=== PATIENT | female | born 1970 | race Hispanic/Latino ===

== ENCOUNTER 2016-08-30 07:31 | Emergency (ER) | payer SELFPAY ==
[2016-08-30 08:07] LABS: Basophils % (Auto) 0.5 % (0.0-1.8); Eosinophils % (Auto) 1.4 % (0.0-4.3); Hematocrit 38.8 % (30.3-42.9); Hemoglobin 12.9 gm/dl (10.1-14.3); Mean Corpuscular HGB Conc 33 % (30-34); Mean Corpuscular Hemoglobin 31 pg (28-32); Mean Corpuscular Volume 91 fl (79-97); Platelet Count 273 K/mm3 (140-440); Red Blood Count 4.24 M/mm3 (3.65-5.03); Red Cell Distribution Width 13.2 % (13.2-15.2); White Blood Count 8.3 K/mm3 (4.5-11.0)
[2016-08-30 09:38] LABS: Alanine Aminotransferase 16 units/L (7-56); Albumin 3.7 g/dL (3.9-5); Albumin/Globulin Ratio 1.1 %; Alkaline Phosphatase 60 units/L (35-129); Anion Gap 16 mmol/L; BUN/Creatinine Ratio 21.66; Bilirubin,Total < 0.2 mg/dL (0.1-1.2); Blood Urea Nitrogen 13 mg/dL (7-17); Carbon Dioxide 28 mmol/L (22-30); Chloride 101.7 mmol/L (98-107); Glucose 122 mg/dL (65-100); Lipase 18 units/L (13-60); Potassium 4.3 mmol/L (3.6-5.0); Sodium 141 mmol/L (137-145); Total Protein 7.2 g/dL (6.3-8.2)
[2016-08-30 17:24] LABS: Bilirubin,Urine NEG (Negative); Blood,Urine NEG (Negative); Ketones,Urine NEG (Negative); Leukocyte Esterase,Urine NEG (Negative); Mucus,Urine FEW /HPF; Nitrite,Urine NEG (Negative); Protein,Urine <15 mg/dL mg/dL (Negative); Urobilinogen,Urine < 2.0 mg/dL (<2.0); WBC,Urine < 1.0 /HPF (0.0-6.0)
[2016-08-30] MEDS ORDERED: NACL ONE (20:35)
--- NOTE | 2016-08-30 20:46 | Emergency Department Report ---
HPI - General Chief Complaint: Chest Pain Time Seen by Provider: 08/30/16 20:07 - HPI HPI: This is a 45-year-old female who presents to the emergency department from home, driven in by a friend, with complaint of abdominal pain that began this morning. It is more of a acute on chronic issue but the exacerbation began this morning. Patient has a history of ventral or umbilical hernia repair in August and March 2016 done in [place]. The first time the surgery was done the patient had a complication of the mesh popping out. It was repaired again but the patient was told that the mesh may once again popped out. The pain was very intense and it caused the patient feels that she was going to pass out and have some chest discomfort. That is since resolved without any intervention. This is also associated with some nausea without vomiting. She denies any fever, dysuria, vaginal bleeding, rectal bleeding but does say that she has some trouble having a bowel movement. She took some ibuprofen earlier today for her symptoms at that any relief. She does not currently have a primary care doctor here. ED Past Medical Hx - Surgical History Additional Surgical History: HYSTERECTOMY / HERNIA REPAIRS - Social History Smoking Status: Never Smoker Substance Use Type: None - Medications Home Medications: Home Medications Medication Instructions Recorded Confirmed Last Taken Type HYDROcodone/APAP 5-325 [[place] 1 each PO Q6HR PRN #14 tablet 08/30/16 Unknown Rx 5/325] Omeprazole Magnesium [PriLOSEC Otc] 20 mg PO QDAY #20 tablet. 08/30/16 Unknown Rx ED Review of Systems ROS: Stated complaint: SEVERE ABD PAIN /CHEST PAIN Other details as noted in HPI Comment: All other systems reviewed and negative Constitutional: denies: chills, fever Eyes: denies: eye pain, eye discharge, vision change ENT: denies: ear pain, throat pain Respiratory: denies: cough, wheezing Cardiovascular: chest pain. denies: palpitations Gastrointestinal: abdominal pain, nausea. denies: vomiting Genitourinary: denies: urgency, dysuria, discharge Musculoskeletal: denies: back pain, joint swelling, arthralgia Skin: denies: rash, lesions Neurological: denies: headache, weakness, paresthesias Physical Exam - Physical Exam Vital Signs: Vital Signs 08/30/16 08/30/16 08/30/16 07:35 16:47 17:00 Temperature 97.7 F 97.8 F Pulse Rate 81 78 82 Respiratory 20 20 14 Rate Blood Pressure 128/89 152/80 Blood Pressure 157/92 [Right] O2 Sat by Pulse 95 98 97 Oximetry 08/30/16 08/30/16 18:00 19:00 Temperature Pulse Rate 85 85 Respiratory 20 12 Rate Blood Pressure 151/88 155/82 Blood Pressure [Right] O2 Sat by Pulse 99 99 Oximetry Physical Exam: GENERAL: The patient is well-developed well-nourished. HEENT: Normocephalic. Atraumatic. Extraocular motions are intact. Patient has moist mucous membranes. Pupils equal reactive to light bilaterally. NECK: Supple. Trachea is midline. CHEST/LUNGS: Clear to auscultation. There is no respiratory distress noted. HEART/CARDIOVASCULAR: Regular. There is no tachycardia. There is no gallop rub or murmur. ABDOMEN: Abdomen is soft. Patient has some reproducible tenderness to palpation to the periumbilical region and just superior to the umbilicus. No guarding or rebound tenderness. No peritoneal signs. Morbidly obese habitus. Patient has normal bowel sounds. There is no abdominal distention. SKIN: There is no rash. There is no diaphoresis. NEURO: The patient is awake, alert, and oriented. The patient is cooperative. The patient has no focal neurologic deficits. The patient has normal speech. MUSCULOSKELETAL: There is no tenderness or deformity. There is no limitation range of motion. There is no evidence of acute injury. ED Course Vital Signs 08/30/16 08/30/16 08/30/16 07:35 16:47 17:00 Temperature 97.7 F 97.8 F Pulse Rate 81 78 82 Respiratory 20 20 14 Rate Blood Pressure 128/89 152/80 Blood Pressure 157/92 [Right] O2 Sat by Pulse 95 98 97 Oximetry 08/30/16 08/30/16 18:00 19:00 Temperature Pulse Rate 85 85 Respiratory 20 12 Rate Blood Pressure 151/88 155/82 Blood Pressure [Right] O2 Sat by Pulse 99 99 Oximetry ED Medical Decision Making - Lab Data Result diagrams: 08/30/16 07:42 08/30/16 07:42 - EKG Data -: EKG Interpreted by Sc EKG shows normal: sinus rhythm, axis, intervals, QRS complexes, ST-T waves Rate: normal - EKG Data When compared to previous EKG there are: previous EKG unavailable Interpretation: normal EKG - Radiology Data Radiology results: report reviewed, image reviewed interpreted by me: Chest x-ray did not show any acute process. Heart is normal shape and size. No effusions. No pneumothorax. No signs of pneumonia seen. CT of the abdomen and pelvis with IV contrast shows fatty infiltration of the liver, nonobstructing right renal calculus, 2.5 cm left ovarian cyst, normal- appearing appendix. There is no free fluid or inflammatory changes seen in the abdomen or pelvis. - Medical Decision Making 45-year-old female presents to the emergency department with some middle abdominal pain that began acutely this morning. She says the pain was so bad that causes some chest discomfort but that resolved prior to presentation. Patient's labs have been mostly unremarkable. It includes no leukocytosis, no electrolyte abnormalities, no renal insufficiency or glucose abnormalities. She has negative troponins 3. She has normal belly labs including bilirubin, lipase and LFTs. There is no urinary tract infection and the patient is not . A chest x-ray was done that did not show any acute process. A CT of the abdomen and pelvis with IV contrast was done that shows fatty infiltration of the letter, and ovarian cyst, and nonobstructive intrarenal calculus, but otherwise no acute process. Patient was given some pain medication and says she is feeling improved. She was given a dose of a PPI encase there is some underlying gastritis. The patient will be discharged home with referrals for both primary care and gastroenterology. She will return to the ER with any worsening of her symptoms or any acute distress. - Differential Diagnosis gastritis, colitis, hernia, bowel obstruction, nephrolithiasis Critical Care Time: No Critical care attestation.: If time is entered above; I have spent that time in minutes in the direct care of this critically ill patient, excluding procedure time. ED Disposition Clinical Impression: Fatty infiltration of liver Hypertension Qualifiers: Hypertension type: essential hypertension Qualified Code(s): I10 - Essential ( primary) hypertension Ovarian cyst Qualifiers: Laterality: left Qualified Code(s): N83.202 - Unspecified ovarian cyst, left side Abdominal pain Qualifiers: Abdominal location: periumbilical Qualified Code(s): R10.33 - Periumbilical pain Disposition: DISCHARGED TO HOME OR SELFCARE Is pt being admited?: No Does the pt Need Aspirin: No Condition: Stable Instructions: Abdominal Pain (ED), Hypertension (ED), Ovarian Cyst (ED) Additional Instructions: Please follow-up with the primary care and gastroenterology referrals you've been given. Return to the emergency department with any worsening of your symptoms or any acute distress.You've been prescribed a medication that is sedating. Therefore this medication cannot be mixed with alcohol, or taken prior to driving, working, or being responsible for children. Prescriptions: HYDROcodone/APAP 5-325 [[place] 5/325] 1 each PO Q6HR PRN #14 tablet PRN Reason: Pain Omeprazole Magnesium [PriLOSEC Otc] 20 mg PO QDAY #20 tablet. Referrals: PRIMARY CAREMD [Primary Care Provider] - 3-5 Days ANUEL GAR MD [Staff Physician] - 3-5 Days LIDIA HERNANDES MD [Staff Physician] - 3-5 Days [facility] [Outside] - 3-5 Days Time of Disposition: 22:48
[2016-08-30] MEDS ORDERED: MORPHINE ONE (21:10)
[2016-08-30] MEDS ORDERED: ZOFRAN ONE (21:10)
[2016-08-30] MEDS ORDERED: MORPHINE IV ONE ×2 (21:12→22:30)
[2016-08-30] MEDS ORDERED: ZOFRAN IV ONE (21:12)
--- NOTE | 2016-08-30 22:02 | Cat Scan Report ---
FINAL REPORT EXAM: CT ABDOMEN PELVIS W CON HISTORY: Abd pain TECHNIQUE: Serial axial images through the abdomen and pelvis with coronal and sagittal reconstruction. 100 milliliters Omnipaque 300 PRIORS: None. FINDINGS: There is atelectasis in the lung bases. No pleural effusion is seen. There is fatty infiltration of the liver. Gallbladder, pancreas, spleen and adrenal glands appear within normal limits. There is a 4.6 millimeter nonobstructing calculus in the right kidney. Left kidney appears normal. Aorta is normal in caliber. Bladder appears normal. There is a 2.5 centimeter left ovarian cyst. Uterus is absent. Appendix appears normal. No gross bowel abnormality is identified. No free fluid. Degenerative changes are seen in the spine. IMPRESSION: 1. Fatty infiltration of the liver. 2. Nonobstructing right renal calculus. 3. 2.5 centimeter left ovarian cyst. 4. Normal-appearing appendix. 5. No free fluid or inflammatory changes are seen in the abdomen or pelvis.
[2016-08-30] MEDS ORDERED: PROTONIX IV ONE (22:30)
[2016-08-30 23:04] VITALS: BP 154/63
--- NOTE | 2016-08-31 08:25 | XRay Report ---
AP CHEST : 08/30/16 21:01 CLINICAL: Chest pain. COMPARISON:None. FINDINGS: Normal heart and pulmonary vessels. The lungs are slightly underexpanded but clear. The bones and soft tissues are unremarkable. IMPRESSION: No acute cardiopulmonary process.
== END 2016-08-30 23:04 | disposition home or self-care (01) ==
LOC: ED 07:31
DX: K76.0 Fatty (change of) liver, not elsewhere classified (principal); R10.33 Periumbilical pain; N83.202 Unspecified ovarian cyst, left side; I10 Essential (primary) hypertension; Z90.710 Acquired absence of both cervix and uterus
CPT/HCPCS: 36415; 71010; 74177; 80053; 81001; 81025; 83690; 84484; 85025; 93005; 93010; 96374; 96375; 96376; 99285; C9113; J2270; J2405; Q9967

== ENCOUNTER 2016-10-29 10:30 | Inpatient (IN) | payer OTHER ==
[2016-10-29 11:46] LABS: Basophils % (Auto) 0.6 % (0.0-1.8); Eosinophils % (Auto) 0.8 % (0.0-4.3); Hematocrit 43.1 % (30.3-42.9); Hemoglobin 14.1 gm/dl (10.1-14.3); Mean Corpuscular HGB Conc 33 % (30-34); Mean Corpuscular Hemoglobin 30 pg (28-32); Mean Corpuscular Volume 92 fl (79-97); Platelet Count 433 K/mm3 (140-440); Red Blood Count 4.68 M/mm3 (3.65-5.03); Red Cell Distribution Width 13.9 % (13.2-15.2); White Blood Count 16.6 K/mm3 (4.5-11.0)
[2016-10-29 11:55] LABS: Alanine Aminotransferase 11 units/L (7-56); Albumin 3.4 g/dL (3.9-5); Alkaline Phosphatase 68 units/L (35-129); Anion Gap 21 mmol/L; BUN/Creatinine Ratio 16.25; Bilirubin,Total 0.2 mg/dL (0.1-1.2); Blood Urea Nitrogen 13 mg/dL (7-17); Carbon Dioxide 20 mmol/L (22-30); Chloride 103.2 mmol/L (98-107); Glucose 222 mg/dL (65-100); Lipase 31 units/L (13-60); Potassium 3.7 mmol/L (3.6-5.0); Sodium 140 mmol/L (137-145); Total Protein 6.9 g/dL (6.3-8.2)
[2016-10-29] MEDS ORDERED: ZOFRAN IV ONE (12:57)
[2016-10-29] MEDS ORDERED: MORPHINE IV ONE (12:57)
[2016-10-29] MEDS ORDERED: ZOSYN/NS 4.5GM/100ML 4.5 GM/100 ML VIAL IV ONE (12:58)
[2016-10-29] MEDS ORDERED: PROTONIX IV ONE (12:58)
--- NOTE | 2016-10-29 13:00 | Emergency Department Report ---
ED Abdominal Pain HPI - General Chief Complaint: Abdominal Pain Stated Complaint: KRISTINA/ABD PX Time Seen by Provider: 10/29/16 12:44 Source: patient Mode of arrival: Stretcher Limitations: No Limitations - History of Present Illness Initial Comments: Patient complains of infraumbilical pain since this morning. She states it is constant and dull. It does not radiate. It does not involve her back. Initially her blood pressure was I guess 113/51 on 1 side and 90/31 I presume as a repeat or the other side I'm not certain. This is on the triage sheet. At this time her blood pressure is fine. She is perfusing and mentating well. She states that she has had multiple umbilical hernia repairs and procedures. She states the last one was in March when her "mesh slipped". [place] She states that she has not been vomiting. She was her bowels yesterday. She does not report fever or chills. MD Complaint: abdominal pain -: Gradual Location: periumbilical (infraumbilical) Radiation: none Migration to: no migration Severity: moderate Quality: aching Consistency: constant Improves With: nothing Worsens With: nothing Associated Symptoms: denies other symptoms - Related Data Home Medications Medication Instructions Recorded Confirmed Last Taken No Known Home Medications [No 10/29/16 10/29/16 Unknown Reported Home Medications] Allergies Allergy/AdvReac Type Severity Reaction Status Date / Time Barbiturates Allergy Hives Verified 07/07/16 21:11 ciprofloxacin [From Cipro] Allergy Hives Verified 07/07/16 21:12 ciprofloxacin HCl Allergy Hives Verified 07/07/16 21:12 [From Cipro] ketorolac tromethamine Allergy Rash Verified 07/07/16 21:12 [From Toradol] Quinolones Allergy Hives Verified 07/07/16 21:12 ED Review of Systems ROS: Stated complaint: KRISTINA/ABD PX Other details as noted in HPI Constitutional: denies: chills, fever Eyes: denies: eye pain, eye discharge, vision change ENT: denies: ear pain, throat pain Respiratory: denies: cough, shortness of breath, wheezing Cardiovascular: denies: chest pain, palpitations Endocrine: no symptoms reported Gastrointestinal: abdominal pain. denies: nausea, diarrhea Genitourinary: dysuria. denies: urgency, discharge Musculoskeletal: denies: back pain, joint swelling, arthralgia Skin: denies: rash, lesions Neurological: denies: headache, weakness, paresthesias Psychiatric: denies: anxiety, depression Hematological/Lymphatic: denies: easy bleeding, easy bruising ED Past Medical Hx - Past Medical History Hx Psychiatric Treatment: Yes Additional medical history: Sleep apnea - Surgical History Additional Surgical History: HYSTERECTOMY / HERNIA REPAIRS - Social History Smoking Status: Never Smoker Substance Use Type: None - Medications Home Medications: Home Medications Medication Instructions Recorded Confirmed Last Taken Type No Known Home Medications [No 10/29/16 10/29/16 Unknown History Reported Home Medications] ED Physical Exam - General Limitations: No Limitations General appearance: alert, in no apparent distress - Head Head exam: Present: atraumatic, normocephalic - Eye Eye exam: Present: normal appearance, PERRL, EOMI. Absent: scleral icterus - ENT ENT exam: Present: normal exam, mucous membranes moist - Neck Neck exam: Present: normal inspection - Respiratory Respiratory exam: Present: normal lung sounds bilaterally. Absent: respiratory distress - Cardiovascular Cardiovascular Exam: Present: regular rate, normal rhythm. Absent: systolic murmur, diastolic murmur, rubs, gallop - GI/Abdominal GI/Abdominal exam: Present: soft, tenderness, normal bowel sounds, other (obese abdomen. There is some fullness in the early umbilicus. I do not palpate any hernia. I do not see any evidence of failure of the previous umbilical hernia repair. There is no guarding no rebound and no rigidity.). Absent: guarding, rebound, rigid, organomegaly, mass, bruit, pulsatile mass, hernia (surgical repair appears intact) - Extremities Exam Extremities exam: Present: normal inspection - Back Exam Back exam: Present: normal inspection - Neurological Exam Neurological exam: Present: alert, oriented X3 - Psychiatric Psychiatric exam: Present: normal affect, normal mood - Skin Skin exam: Present: warm, dry, intact, normal color. Absent: rash ED Course Vital Signs 10/29/16 10/29/16 10/29/16 10:55 11:14 13:17 Temperature 97.4 F L Pulse Rate 103 H 97 H Respiratory 16 18 Rate Blood Pressure 90/31 Blood Pressure 113/51 [Right] O2 Sat by Pulse 96 94 Oximetry - Reevaluation(s) Reevaluation #1: Admission patient to Dr. Islas well while he was here. He stated to call him if the CT shows anything surgical. I suspect patient will actually return checker to have acute cystitis or pyelonephritis. Her blood glucose is elevated. She has no history of prior type 2 diabetes but certainly would be expected to have this. She is going to be admitted by the hospitalist service further care and evaluation. Going to obtain lactic acid and blood cultures sent in addition to her current blood work. She is admitted in stable condition. Surgical consultation will be at Dr. Harden's discretion. CT the abdomen showed nothing acute. 10/29/16 16:01 ED Medical Decision Making - Lab Data Result diagrams: 10/29/16 11:20 10/29/16 11:20 Laboratory Results - last 24 hr 10/29/16 10/29/16 11:20 11:20 WBC 16.6 H RBC 4.68 Hgb 14.1 Hct 43.1 H MCV 92 MCH 30 MCHC 33 RDW 13.9 Plt Count 433 Lymph % (Auto) 23.1 [place] % (Auto) 3.5 Eos % (Auto) 0.8 Baso % (Auto) 0.6 Lymph # 3.8 [place] # 0.6 Eos # 0.1 Baso # 0.1 Seg Neutrophils % 72.0 H Seg Neutrophils # 11.9 H Sodium 140 Potassium 3.7 Chloride 103.2 Carbon Dioxide 20 L Anion Gap 21 BUN 13 Creatinine 0.8 Estimated GFR > 60 BUN/Creatinine Ratio 16.25 Glucose 222 H Calcium 9.0 Total Bilirubin 0.2 AST 14 ALT 11 Alkaline Phosphatase 68 Total Protein 6.9 Albumin 3.4 L Albumin/Globulin Ratio 1.0 Lipase 31 - EKG Data EKG shows normal: sinus rhythm, axis, intervals, QRS complexes, ST-T waves Rate: normal - EKG Data Interpretation: no acute changes - Radiology Data Radiology results: report reviewed Critical care attestation.: If time is entered above; I have spent that time in minutes in the direct care of this critically ill patient, excluding procedure time. ED Disposition Clinical Impression: Abdominal pain Qualifiers: Abdominal location: lower abdomen, unspecified Qualified Code(s): R10.30 - Lower abdominal pain, unspecified Type 2 diabetes mellitus Qualifiers: Diabetes mellitus complication status: without complication Diabetes mellitus senior care insulin use: without senior care use Qualified Code(s): E11.9 - Type 2 diabetes mellitus without complications Disposition: OP ADMITTED IP TO THIS HOSP Is pt being admited?: Yes Does the pt Need Aspirin: Yes Condition: Stable Instructions: Abdominal Pain (ED), Diabetes Mellitus Type 2 in Adults (ED) Referrals: PRIMARY CARE,MD [Primary Care Provider] - 3-5 Days Time of Disposition: 16:03
--- NOTE | 2016-10-29 15:21 | Cat Scan Report ---
FINAL REPORT EXAM: CT ABDOMEN PELVIS W CON HISTORY: periumbilical pain, previous H, WBC 16.6 TECHNIQUE: CT scan of the abdomen and pelvis with IV and oral contrast. Multiplanar reformations. PRIORS: 08/30/2016 FINDINGS: Scarring versus atelectasis lingula, unchanged. No free air. Liver shows no significant abnormality. Normal-appearing gallbladder and biliary tree. Spleen shows no significant abnormality. Adrenal glands show no significant abnormality. Left kidney shows no significant abnormality. Right renal calculus unchanged. No hydronephrosis. Pancreas shows no significant abnormality. Abdominal aorta is nonaneurysmal. The appendix appears normal. No periappendiceal inflammatory changes. Postsurgical changes on anterior abdominal wall. Small follicle left ovary. No ureteral calculus IMPRESSION: 1. No acute finding. Stable right renal calculus.
[2016-10-29 16:38] LABS: Bilirubin,Urine NEG (Negative); Blood,Urine SM (Negative); Ketones,Urine NEG (Negative); Leukocyte Esterase,Urine NEG (Negative); Mucus,Urine FEW /HPF; Nitrite,Urine NEG (Negative); Protein,Urine <15 mg/dL mg/dL (Negative); Urobilinogen,Urine < 2.0 mg/dL (<2.0); WBC,Urine < 1.0 /HPF (0.0-6.0)
[2016-10-29] MEDS ORDERED: TYLENOL PO PRN (19:10)
[2016-10-29] MEDS ORDERED: DULCOLAX PR PRN (19:10)
[2016-10-29] MEDS ORDERED: MILK OF MAGNESIA PO PRN (19:10)
[2016-10-29] MEDS ORDERED: ZOFRAN IV PRN (19:10)
[2016-10-29] MEDS ORDERED: D5NS 1,000 ML IV SCH (20:00)
--- NOTE | 2016-10-29 21:26 | History and Physical Report ---
History of Present Illness Date of examination: 10/29/16 Date of admission: 10/29/16 Chief complaint: Acute Abd pain -2 days History of present illness: 46 y/o female with no significan pmh comes in for Acute abd pain.2 days duration.No fever chills.Pain is 8/10.No dysuria or flank pain.Pain localized to periumblical region.Patient had multiple abdominal wall hernia repairs.Had problems with mesh placed for abd wall hernia. Past History Past Medical History: No medical history Past Surgical History: hysterectomy (Abd wall Hernia repair), Other Social history: denies: smoking, alcohol abuse Family history: no significant family history Medications and Allergies Allergies Allergy/AdvReac Type Severity Reaction Status Date / Time Barbiturates Allergy Hives Verified 07/07/16 21:11 ciprofloxacin [From Cipro] Allergy Hives Verified 07/07/16 21:12 ciprofloxacin HCl Allergy Hives Verified 07/07/16 21:12 [From Cipro] ketorolac tromethamine Allergy Rash Verified 07/07/16 21:12 [From Toradol] Quinolones Allergy Hives Verified 07/07/16 21:12 Home Medications Medication Instructions Recorded Confirmed Last Taken Type No Known Home Medications [No 10/29/16 10/29/16 Unknown History Reported Home Medications] Review of Systems All systems: negative Gastrointestinal: abdominal pain, nausea Exam - Physical Exam Narrative exam: Well developed well nourished female in slight distress sec to abd wall pain - Constitutional Vitals: Temp Pulse Resp BP Pulse Ox 98.3 F 88 18 129/77 96 10/29/16 19:02 10/29/16 19:02 10/29/16 19:02 10/29/16 19:02 10/29/16 19:02 General appearance: Present: no acute distress, well-nourished - EENT Eyes: Present: PERRL ENT: hearing intact, clear oral mucosa - Neck Neck: Present: supple, normal ROM - Respiratory Respiratory effort: normal Respiratory: bilateral: CTA - Cardiovascular Heart Sounds: Present: S1 & S2. Absent: rub, click - Extremities Extremities: pulses symmetrical, No edema Peripheral Pulses: within normal limits - Abdominal General gastrointestinal: Present: tender, non-distended, normal bowel sounds Localized gastrointestinal: tender: epigastric periumbilical (No guarding no rebound tenderness) Female genitourinary: Present: normal - Integumentary Integumentary: Present: clear, warm, dry - Musculoskeletal Musculoskeletal: gait normal, strength equal bilaterally - Psychiatric Psychiatric: appropriate mood/affect, intact judgment & insight - Neurologic Neurologic: CNII-XII intact, moves all extremities Results - Labs CBC & Chem 7: 10/30/16 05:35 10/30/16 05:35 Labs: Laboratory Last Values WBC 16.6 K/mm3 (4.5-11.0) H 10/29/16 11:20 RBC 4.68 M/mm3 (3.65-5.03) 10/29/16 11:20 Hgb 14.1 gm/dl (10.1-14.3) 10/29/16 11:20 Hct 43.1 % (30.3-42.9) H 10/29/16 11:20 MCV 92 fl (79-97) 10/29/16 11:20 MCH 30 pg (28-32) 10/29/16 11:20 MCHC 33 % (30-34) 10/29/16 11:20 RDW 13.9 % (13.2-15.2) 10/29/16 11:20 Plt Count 433 K/mm3 (140-440) 10/29/16 11:20 Lymph % (Auto) 23.1 % (13.4-35.0) 10/29/16 11:20 [place] % (Auto) 3.5 % (0.0-7.3) 10/29/16 11:20 Eos % (Auto) 0.8 % (0.0-4.3) 10/29/16 11:20 Baso % (Auto) 0.6 % (0.0-1.8) 10/29/16 11:20 Lymph # 3.8 K/mm3 (1.2-5.4) 10/29/16 11:20 [place] # 0.6 K/mm3 (0.0-0.8) 10/29/16 11:20 Eos # 0.1 K/mm3 (0.0-0.4) 10/29/16 11:20 Baso # 0.1 K/mm3 (0.0-0.1) 10/29/16 11:20 Seg Neutrophils % 72.0 % (40.0-70.0) H 10/29/16 11:20 Seg Neutrophils # 11.9 K/mm3 (1.8-7.7) H 10/29/16 11:20 Sodium 140 mmol/L (137-145) 10/29/16 11:20 Potassium 3.7 mmol/L (3.6-5.0) 10/29/16 11:20 Chloride 103.2 mmol/L (98-107) 10/29/16 11:20 Carbon Dioxide 20 mmol/L (22-30) L 10/29/16 11:20 Anion Gap 21 mmol/L 10/29/16 11:20 BUN 13 mg/dL (7-17) 10/29/16 11:20 Creatinine 0.8 mg/dL (0.7-1.2) 10/29/16 11:20 Estimated GFR > 60 ml/min 10/29/16 11:20 BUN/Creatinine Ratio 16.25 % 10/29/16 11:20 Glucose 222 mg/dL (65-100) H 10/29/16 11:20 Lactic Acid 2.2 mmol/L (0.7-2.0) H* 10/29/16 16:23 Calcium 9.0 mg/dL (8.4-10.2) 10/29/16 11:20 Total Bilirubin 0.2 mg/dL (0.1-1.2) 10/29/16 11:20 AST 14 units/L (5-40) 10/29/16 11:20 ALT 11 units/L (7-56) 10/29/16 11:20 Alkaline Phosphatase 68 units/L (35-129) 10/29/16 11:20 Total Protein 6.9 g/dL (6.3-8.2) 10/29/16 11:20 Albumin 3.4 g/dL (3.9-5) L 10/29/16 11:20 Albumin/Globulin Ratio 1.0 % 10/29/16 11:20 Lipase 31 units/L (13-60) 10/29/16 11:20 Urine Color Yellow (Yellow) 10/29/16 16:29 Urine Turbidity Clear (Clear) 10/29/16 16:29 Urine pH 5.0 (5.0-7.0) 10/29/16 16:29 Urine Protein <15 mg/dl mg/dL (Negative) 10/29/16 16:29 Urine Glucose (UA) Neg mg/dL (Negative) 10/29/16 16:29 Urine Ketones Neg mg/dL (Negative) 10/29/16 16:29 Urine Blood Sm (Negative) 10/29/16 16:29 Urine Nitrite Neg (Negative) 10/29/16 16:29 Urine Bilirubin Neg (Negative) 10/29/16 16:29 Urine Urobilinogen < 2.0 mg/dL (<2.0) 10/29/16 16:29 Ur Leukocyte Esterase Neg (Negative) 10/29/16 16:29 Urine WBC (Auto) < 1.0 /HPF (0.0-6.0) 10/29/16 16:29 Urine RBC (Auto) 4.0 /HPF (0.0-6.0) 10/29/16 16:29 U Epithel Cells (Auto) 6.0 /HPF (0-13.0) 10/29/16 16:29 Urine Mucus Few /HPF 10/29/16 16:29 Short CBC 10/29/16 10/30/16 Range/Units 11:20 05:35 WBC 16.6 H 11.4 H (4.5-11.0) K/mm3 Hgb 14.1 11.6 (10.1-14.3) gm/dl Hct 43.1 H 35.1 D (30.3-42.9) % Plt Count 433 279 (140-440) K/mm3 BMP 10/29/16 10/30/16 11:20 05:35 Sodium 140 142 Potassium 3.7 4.0 Chloride 103.2 107.1 H Carbon Dioxide 20 L 24 BUN 13 11 Creatinine 0.8 0.8 Glucose 222 H 103 H Calcium 9.0 8.4 Liver Function 10/29/16 10/30/16 Range/Units 11:20 05:35 Total Bilirubin 0.2 0.2 (0.1-1.2) mg/dL AST 14 10 (5-40) units/L ALT 11 8 (7-56) units/L Alkaline Phosphatase 68 53 (35-129) units/L Albumin 3.4 L 2.9 L (3.9-5) g/dL Urine 10/29/16 Range/Units 16:29 Urine Color Yellow (Yellow) Urine pH 5.0 (5.0-7.0) Urine Protein <15 mg/dl (Negative) mg/dL Urine Glucose (UA) Neg (Negative) mg/dL - Imaging and Cardiology CT scan - abdomen: report reviewed (NAF) Assessment and Plan Advance Directives: Yes (Full code) VTE prophylaxis?: Chemical - Patient Problems (1) Infected hernioplasty mesh Current Visit: Yes Status: Acute Qualifiers: Encounter type: initial encounter Qualified Code(s): T85.79XA - Infection and inflammatory reaction due to other internal prosthetic devices, implants and grafts, initial encounter Plan to address problem: In [place] [address] I am more in favor of Hernia mesh infection.Urine is negative for infection. started on Zosyn IV. (2) DVT prophylaxis Current Visit: Yes Status: Acute Plan to address problem: on lovenox
[2016-10-29] MEDS ORDERED: VANCOMYCIN/NS 1 GM/250 ML 1 GM/250 ML BAG IV ONE (21:27)
[2016-10-29] MEDS ORDERED: PERCOCET 5/325 ONE (21:32)
[2016-10-29] MEDS: PERCOCET 5/325 PO PRN (21:52)
[2016-10-29] MEDS ORDERED: VANCOMYCIN VIAL 2,000 MG in NACL 0.9% 500 ML 500 ML IV ONE (22:00)
[2016-10-29] MEDS: ZOSYN/NS 4.5GM/100ML 4.5 GM/100 ML VIAL IV SCH (22:43)
[2016-10-30] MEDS ORDERED: BENADRYL IV ONE (01:50)
[2016-10-30] MEDS: DILAUDID IV PRN ×4 (02:13→16:56)
[2016-10-30] MEDS: ZOSYN/NS 4.5GM/100ML 4.5 GM/100 ML VIAL IV SCH ×3 (06:07→22:39)
[2016-10-30 06:32] LABS: Basophils % (Auto) 1.2 % (0.0-1.8); Eosinophils % (Auto) 1.6 % (0.0-4.3); Hematocrit 35.1 % (30.3-42.9); Hemoglobin 11.6 gm/dl (10.1-14.3); Mean Corpuscular HGB Conc 33 % (30-34); Mean Corpuscular Hemoglobin 30 pg (28-32); Mean Corpuscular Volume 91 fl (79-97); Platelet Count 279 K/mm3 (140-440); Red Blood Count 3.85 M/mm3 (3.65-5.03); White Blood Count 11.4 K/mm3 (4.5-11.0)
[2016-10-30 06:48] LABS: Alanine Aminotransferase 8 units/L (7-56); Albumin 2.9 g/dL (3.9-5); Albumin/Globulin Ratio 0.9 %; Alkaline Phosphatase 53 units/L (35-129); Anion Gap 15 mmol/L; BUN/Creatinine Ratio 13.75; Bilirubin,Total 0.2 mg/dL (0.1-1.2); Blood Urea Nitrogen 11 mg/dL (7-17); Calcium 8.4 mg/dL (8.4-10.2); Carbon Dioxide 24 mmol/L (22-30); Chloride 107.1 mmol/L (98-107); Glucose 103 mg/dL (65-100); Sodium 142 mmol/L (137-145); Total Protein 6.1 g/dL (6.3-8.2)
--- NOTE | 2016-10-30 08:16 | Admit Criteria Form ---
Admission Criteria Documentation: ABDOMINAL PAIN Clinical Indications for Admission to Inpatient Care (Place 'X' for any and all applicable criteria): Admission is indicated for ANY ONE of the following(1)(2)(3)(4)(5): [X]I. Inpatient admission required rather than observation care (Also use Abdominal Pain: Observation Care, as appropriate) because of ANY ONE of the following: [ ]a) Severe pain requiring acute inpatient management []b) Identification of etiology/finding that requires inpatient care (eg, aortic dissection, free air) [ ]c) Absent bowel sounds with complete ileus(6) [ ]d) Suspected toxic megacolon [ ]e) Severe electrolyte abnormalities requiring inpatient care [ ]f) High fever or infection requiring inpatient admission as indicated by ANY ONE of following(7)(8): [ ] i) Appropriate outpatient or observational care antimicrobial treatment unavailable, not effective, or not feasible [ ] ii) Documented bacteremia [ ] iii) Temperature > 104.9 degrees F (oral) [ ] iv) T >103.1 F (oral) or < 96.8 F(rectal) that does not respond to all emergency treatment measures [ ]g) Signs of intestinal obstruction [B] [ ]h) Hemodynamic instability [ ]i) IV fluid to replace significant ongoing losses (greater than 3 L/m2 per day) (12)(13) [ ]j) Percutaneous or open drainage (eg, abscess, biliary tract ) procedures [ ]k) Parenteral nutrition regimen that must be implemented on inpatient basis [X]l) Other condition,treatment or monitoring requiring inpatient admission. [ ]II. Peritoneal signs present [ ]III. Surgery needed that cannot be performed on an ambulatory basis. [ ]IV. Evaluation requires patient to not eat or drink for extended period ( eg, more than 24 hours). [ ]V. Contraindications and/or Inappropriate clinical situations for Observational Care in patients with abdominal pain, when ANY ONE of the following is required: [ ]a) Thorough evaluation is required to prevent catastrophic events due to delays in diagnosing (e.g.Mesenteric ischemia) 1,3 [ ]b) Patient with severe pathology or with chronic symptoms unlikely to improve in the ED stay (3) [ ]. General contraindications and/or Inappropriate clinical situations for Observational Care in patients with abdominal pain, when ANY ONE of the following is required: [ ]a) Prediction of prolongation of LOS based on ANY ONE of the following may be considered as a contraindication for observational care 2, 3, 4, 5, 6, 7, 8, 9, 10, 11 [ ]i) Age > 65 yrs. [ ]ii) Patient arriving by ambulance [ ]iii) Patient with high acuity [ ]iv) Patient requiring vital sign monitoring [ ]v) Patient on IV medication [ ]b) Systolic blood pressures 180mmHg 3,12 [ ]c) Patient with altered mental status including delirium and other alteration of consciousness, (3) [ ]d) Patient whose discharge disposition will be to a group home home or rehabilitation home should not be managed in Emergency Department Observation Unit. CMS rule requires 3 days hospital stay before such placement.3,13 [ ]e) Patient with failure to thrive due to broad array of etiologies 3,16,17 [ ]f) Inability to ambulate 3,14 Extended stay beyond goal length of stay may be needed for(2)(3): [ ]a) Persistent abdominal pain with suspected intra-abdominal process [ ]b) Diagnosed condition requiring continued stay (e.g., pancreatitis, complicated diverticulitis) [ ]c) Surgery (e.g., colectomy) The original [facility] content created by [employer] has been revised. The portions of the content which have been revised are identified through the use of italic text or in bold, and [facility] has neither reviewed nor approved the modified material.All other unmodified content is copyright [facility]. Please see references footnoted in the original [facility] edition 2016 Admission Criteria Met: Yes
[2016-10-30] MEDS: LOVENOX SUB-Q SCH (10:10)
--- NOTE | 2016-10-30 13:50 | Progress Note ---
Assessment and Plan Assessment and plan: 46 y/o female with no significan pmh comes in for Acute periumbilical abd pain for 2 days duration. Patient had multiple abdominal wall hernia repairs in the past. CT abdomen pelvis showed no acute process. (1) Infected hernioplasty mesh Current Visit: Yes Status: Acute Qualifiers: Encounter type: initial encounter Qualified Code(s): T85.79XA - Infection and inflammatory reaction due to other internal prosthetic devices, implants and grafts, initial encounter Plan to address problem: In view of abdominal wall pain and high WBC count getting treated for Hernia mesh infection. Urine is negative for infection. started on Zosyn IV. Consult surgery for recommendation Start on clear liquid (2) DVT prophylaxis Current Visit: Yes Status: Acute Plan to address problem: on lovenox History Interval history: Patient seen and examined. Medical records and medication list reviewed. No acute event overnight noted by the RN. Patient continued to complain of abdominal pain but improved than yesterday Denies any episodes of nausea and vomiting Discussed plan of care at bedside with patient. Hospitalist Physical - Physical exam Narrative exam: General appearance: Present: no acute distress, well-nourished - EENT Eyes: Present: PERRL ENT: hearing intact, clear oral mucosa - Neck Neck: Present: supple, normal ROM - Respiratory Respiratory effort: normal Respiratory: bilateral: CTA - Cardiovascular Heart Sounds: Present: S1 & S2. Absent: rub, click - Extremities Extremities: pulses symmetrical, No edema Peripheral Pulses: within normal limits - Abdominal General gastrointestinal: Present: tender, non-distended, normal bowel sounds Localized gastrointestinal: tender: epigastric periumbilical (No guarding no rebound tenderness) Female genitourinary: Present: normal - Integumentary Integumentary: Present: clear, warm, dry - Musculoskeletal Musculoskeletal: gait normal, strength equal bilaterally - Psychiatric Psychiatric: appropriate mood/affect, intact judgment & insight - Neurologic Neurologic: CNII-XII intact, moves all extremities - Constitutional Vitals: Temp Pulse Resp BP Pulse Ox 97.9 F 78 20 109/65 92 10/30/16 07:25 10/30/16 07:25 10/30/16 13:03 10/30/16 07:25 10/30/16 07:25 General appearance: Present: no acute distress, well-nourished Results - Labs CBC & Chem 7: 10/30/16 05:35 10/30/16 05:35 Labs: Laboratory Last Values WBC 11.4 K/mm3 (4.5-11.0) H 10/30/16 05:35 RBC 3.85 M/mm3 (3.65-5.03) 10/30/16 05:35 Hgb 11.6 gm/dl (10.1-14.3) 10/30/16 05:35 Hct 35.1 % (30.3-42.9) D 10/30/16 05:35 MCV 91 fl (79-97) 10/30/16 05:35 MCH 30 pg (28-32) 10/30/16 05:35 MCHC 33 % (30-34) 10/30/16 05:35 RDW 14.0 % (13.2-15.2) 10/30/16 05:35 Plt Count 279 K/mm3 (140-440) 10/30/16 05:35 Lymph % (Auto) 31.2 % (13.4-35.0) 10/30/16 05:35 [place] % (Auto) 5.3 % (0.0-7.3) 10/30/16 05:35 Eos % (Auto) 1.6 % (0.0-4.3) 10/30/16 05:35 Baso % (Auto) 1.2 % (0.0-1.8) 10/30/16 05:35 Lymph # 3.6 K/mm3 (1.2-5.4) 10/30/16 05:35 [place] # 0.6 K/mm3 (0.0-0.8) 10/30/16 05:35 Eos # 0.2 K/mm3 (0.0-0.4) 10/30/16 05:35 Baso # 0.1 K/mm3 (0.0-0.1) 10/30/16 05:35 Seg Neutrophils % 60.7 % (40.0-70.0) 10/30/16 05:35 Seg Neutrophils # 6.9 K/mm3 (1.8-7.7) 10/30/16 05:35 Sodium 142 mmol/L (137-145) 10/30/16 05:35 Potassium 4.0 mmol/L (3.6-5.0) 10/30/16 05:35 Chloride 107.1 mmol/L (98-107) H 10/30/16 05:35 Carbon Dioxide 24 mmol/L (22-30) 10/30/16 05:35 Anion Gap 15 mmol/L 10/30/16 05:35 BUN 11 mg/dL (7-17) 10/30/16 05:35 Creatinine 0.8 mg/dL (0.7-1.2) 10/30/16 05:35 Estimated GFR > 60 ml/min 10/30/16 05:35 BUN/Creatinine Ratio 13.75 % 10/30/16 05:35 Glucose 103 mg/dL (65-100) H 10/30/16 05:35 POC Glucose 91 (70-105) 10/29/16 22:32 Hemoglobin A1c 5.7 % (4-6) 10/29/16 11:20 Lactic Acid 2.2 mmol/L (0.7-2.0) H* 10/29/16 16:23 Calcium 8.4 mg/dL (8.4-10.2) 10/30/16 05:35 Total Bilirubin 0.2 mg/dL (0.1-1.2) 10/30/16 05:35 AST 10 units/L (5-40) 10/30/16 05:35 ALT 8 units/L (7-56) 10/30/16 05:35 Alkaline Phosphatase 53 units/L (35-129) 10/30/16 05:35 Total Protein 6.1 g/dL (6.3-8.2) L 10/30/16 05:35 Albumin 2.9 g/dL (3.9-5) L 10/30/16 05:35 Albumin/Globulin Ratio 0.9 % 10/30/16 05:35 Lipase 31 units/L (13-60) 10/29/16 11:20 Urine Color Yellow (Yellow) 10/29/16 16:29 Urine Turbidity Clear (Clear) 10/29/16 16:29 Urine pH 5.0 (5.0-7.0) 10/29/16 16:29 Urine Protein <15 mg/dl mg/dL (Negative) 10/29/16 16:29 Urine Glucose (UA) Neg mg/dL (Negative) 10/29/16 16:29 Urine Ketones Neg mg/dL (Negative) 10/29/16 16:29 Urine Blood Sm (Negative) 10/29/16 16:29 Urine Nitrite Neg (Negative) 10/29/16 16:29 Urine Bilirubin Neg (Negative) 10/29/16 16:29 Urine Urobilinogen < 2.0 mg/dL (<2.0) 10/29/16 16:29 Ur Leukocyte Esterase Neg (Negative) 10/29/16 16:29 Urine WBC (Auto) < 1.0 /HPF (0.0-6.0) 10/29/16 16:29 Urine RBC (Auto) 4.0 /HPF (0.0-6.0) 10/29/16 16:29 U Epithel Cells (Auto) 6.0 /HPF (0-13.0) 10/29/16 16:29 Urine Mucus Few /HPF 10/29/16 16:29 - Imaging and Cardiology CT scan - abdomen: report reviewed
--- NOTE | 2016-10-30 13:59 | Progress Note ---
Assessment and Plan 46 y/o female s/p ventral hernia repair x 3 last 2 with mesh. r/o infected mesh? vague abd pain around "old hernia site" - nausea or vomiting. reg BM's Abd - morbidly obese. Abd soft. no palpable hernia at old repair site. neg erythema, tenderness or induration. CT abd - no significant findings. surgically stable no obvious evidence of mesh infection may begin po diet Selected Entries 10/30/16 10/30/16 07:25 13:03 Temperature 97.9 F Pulse Rate [ 78 Right Radial] Respiratory 20 Rate Blood Pressure 109/65 [Right Arm] Laboratory Tests 10/30/16 05:35 WBC 11.4 H Hgb 11.6 Hct 35.1 D Objective Vital Signs - 12hr 10/30/16 10/30/16 10/30/16 02:13 02:43 06:06 Temperature Pulse Rate [ Right Radial] Respiratory 20 18 20 Rate Blood Pressure [Right Arm] O2 Sat by Pulse Oximetry 10/30/16 10/30/16 10/30/16 06:36 07:25 13:03 Temperature 97.9 F Pulse Rate [ 78 Right Radial] Respiratory 20 18 20 Rate Blood Pressure 109/65 [Right Arm] O2 Sat by Pulse 92 Oximetry - Labs 10/30/16 05:35 10/30/16 05:35 Diabetes panel 10/30/16 Range/Units 05:35 Sodium 142 (137-145) mmol/L Potassium 4.0 (3.6-5.0) mmol/L Chloride 107.1 H (98-107) mmol/L Carbon Dioxide 24 (22-30) mmol/L BUN 11 (7-17) mg/dL Creatinine 0.8 (0.7-1.2) mg/dL Glucose 103 H (65-100) mg/dL Calcium 8.4 (8.4-10.2) mg/dL AST 10 (5-40) units/L ALT 8 (7-56) units/L Alkaline Phosphatase 53 (35-129) units/L Total Protein 6.1 L (6.3-8.2) g/dL Albumin 2.9 L (3.9-5) g/dL Calcium panel 10/30/16 Range/Units 05:35 Calcium 8.4 (8.4-10.2) mg/dL Albumin 2.9 L (3.9-5) g/dL Pituitary panel 10/30/16 Range/Units 05:35 Sodium 142 (137-145) mmol/L Potassium 4.0 (3.6-5.0) mmol/L Chloride 107.1 H (98-107) mmol/L Carbon Dioxide 24 (22-30) mmol/L BUN 11 (7-17) mg/dL Creatinine 0.8 (0.7-1.2) mg/dL Glucose 103 H (65-100) mg/dL Calcium 8.4 (8.4-10.2) mg/dL Adrenal panel 10/30/16 Range/Units 05:35 Sodium 142 (137-145) mmol/L Potassium 4.0 (3.6-5.0) mmol/L Chloride 107.1 H (98-107) mmol/L Carbon Dioxide 24 (22-30) mmol/L BUN 11 (7-17) mg/dL Creatinine 0.8 (0.7-1.2) mg/dL Glucose 103 H (65-100) mg/dL Calcium 8.4 (8.4-10.2) mg/dL Total Bilirubin 0.2 (0.1-1.2) mg/dL AST 10 (5-40) units/L ALT 8 (7-56) units/L Alkaline Phosphatase 53 (35-129) units/L Total Protein 6.1 L (6.3-8.2) g/dL Albumin 2.9 L (3.9-5) g/dL
[2016-10-31] MEDS: DILAUDID IV PRN (01:00)
--- NOTE | 2016-10-31 03:02 | Consultation ---
REASON FOR CONSULTATION: Rule out infected mesh? HISTORY OF PRESENT ILLNESS: The patient is a 46-year-old morbidly obese female who was admitted secondary to nonspecific abdominal pain. The patient denies any nausea or vomiting. Also, is having regular bowel movements. She states that \\"stomach is bothering me around old repair site.\\" The patient is status post 3 ventral hernia repairs in the past, last which she states was approximately 2 years ago. Also, it appears the last 2 were repaired with mesh. PAST MEDICAL HISTORY: Pertinent for bipolar disease, sleep apnea, and diabetes. PAST SURGICAL HISTORY: Status post breast reduction, C-sections and ectopic surgery, 2 tubal ligations? hysterectomy and carpal tunnel surgery. ALLERGIES: Allergic to BARBITURATES and CIPRO, which causes hives. FAMILY HISTORY: Diabetes, hypertension, and heart disease. SOCIAL HISTORY: Denies any smoking or drinking. PHYSICAL EXAMINATION: GENERAL: At this time reveals the patient to be awake, alert, cooperative, in no acute distress. VITAL SIGNS: Show her to be afebrile with a temperature of 97.9, blood pressure 109/65, pulse is 78, respirations 20. ABDOMEN: Examination of the abdomen reveals her to be morbidly obese. Old scar site is noted around umbilical region. There is no palpable hernia noted at this time. No evidence of any erythema, tenderness or induration. Bowel sounds are present and normal. LABORATORY DATA: Lab work at present includes a CBC which shows a white count of 11.4, H and H is 11.6 and 35.1. Electrolytes are essentially within normal limits. Lipase is 31. No amylase noted. A CT scan of the abdomen has been performed, which I have reviewed with the radiologist. Essentially, the CT is unremarkable. No evidence of any recurrent hernia, infection, or any bowel incarceration or obstruction. IMPRESSION AND PLAN: At this time is that of a 46-year-old female, rule out infected mesh. No obvious evidence of infected mesh at this time. The patient appears surgically stable. I recommend to attempt p.o. diet and observation. We will follow the patient p.r.n. Just call if any evidence of nausea, vomiting or other abdominal issues occur. JOB# [id number] FP/NTS
[2016-10-31] MEDS: ZOSYN/NS 4.5GM/100ML 4.5 GM/100 ML VIAL IV SCH ×2 (06:54→14:00)
[2016-10-31 08:44] VITALS: BP 97/65
[2016-10-31] MEDS: LOVENOX SUB-Q SCH (11:08)
[2016-10-31] MEDS: PERCOCET 5/325 PO PRN (11:09)
--- NOTE | 2016-10-31 13:27 | Discharge Summary ---
Providers - Providers Date of Admission: 10/29/16 19:10 Date of discharge: 10/31/16 Attending physician: RENEE MONTOYA 10/30/16 11:01 Consult to Physician [CONS] Routine Consulting Provider: NELI MIRELES Reason For Exam: Infected hernioplasty mesh ??? Place consult to:: internal consultant sergery Notified:: yes Phone number called:: [phone] Was contact made?: Yes If yes, spoke with:: Jihan Time called:: 11:19 10/30/16 12:55 Consult to Physician [CONS] Routine Consulting Provider: RITA MEDINA Reason For Exam: infected from hernia mesh Place consult to:: office Notified:: yes Primary care physician: [employer] Hospitalization Condition: Stable Hospital course: 46 y/o female without chronic medical problems except chronic ventral hernia mesh from [place], [place] who comes in for Acute periumbilical abd pain for 2 days duration. Patient had multiple abdominal wall hernia repairs in the past in [facility]. CT abdomen pelvis showed no acute process. (1) Infected hernioplasty mesh with sepsis, poa In view of abdominal wall pain and high WBC count getting treated for Hernia mesh infection. Urine is negative for infection. started on Zosyn IV. Consult surgery for recommendation, has been cleared by general surgery Dr. Peterson Start on clear liquid and tolerated diet 2) morbid obesity bmi 53.5, counseling done. 3) multiple drug allergies including quinolones Disposition: DISCHARGED TO HOME OR SELFCARE Time spent for discharge: 34 minutes Core Measure Documentation - Palliative Care Palliative Care/ Comfort Measures: Not Applicable - Core Measures Any of the following diagnoses?: none - VTE Discharge Requirements Deep Vein Thrombosis/Pulmonary Embolism Present on Admission: No Has pt received <5 days of overlap therapy or INR<2.0: No Anticoagulant overlap therapy prescribed at discharge: No Contraindication No Overlap Therapy order at DC: Not Indicated Exam - Physical Exam Narrative exam: GEN: WDWN, NAD, AWAKE, ALERT, ORIENTATED, BMI 52.5 HEENT: NCAT, PERRL, EOMI, OP CLEAR NECK: SUPPLE, NO THYROMEGALY, NO JVD, NO LAD CVS: RRR, NORMAL S1S2 LUNGS/CHEST: CTA B, NORMAL CHEST EXPANSION B, GOOD AIR ENTRY B ABD: SOFT NTND, I do not see any signs of infection or acute surgeries, old surgical scars, GBS, NO REBOUND OR GUARDING EXT/SKIN: NO SIGNIFICANT EDEMA OR RASH MSK: FROM X 4 EXTREMITIES NEURO: CN 2-12 GROSSLY INTACT, NO new FOCAL DEFICITS PSY: CALM - Constitutional Vitals: Temp Pulse Resp BP Pulse Ox 98.1 F 64 20 97/65 96 10/31/16 08:00 10/31/16 08:00 10/31/16 11:09 10/31/16 08:00 10/30/16 23:25 Plan Activity: advance as tolerated (no strenous activites until cleared by PCP. ) Diet: low salt Special Instructions: no heavy lifting (until cleared by general surgery) Follow up with: PRIMARY CAREMD [Primary Care Provider] - 3-5 Days NELI MIRELES MD [Staff Physician] - 7 Days Prescriptions: Amoxicillin/K Clav Tab [Augmentin 875 mg] 1 tab PO Q12HR #14 tab oxyCODONE /ACETAMINOPHEN [Percocet 5/325 mg] 1 tab PO Q6H PRN #30 tablet PRN Reason: Pain , Severe (7-10)
== END 2016-10-31 14:40 | disposition home or self-care (01) | DRG 919 ==
LOC: ED 10:30 → 2B-SURG 19:10
PROVIDERS: ADMIT Internal Medicine; ATTEND Internal Medicine
DX: T85.79XA Infection and inflammatory reaction due to other internal prosthetic devices, implants and grafts, initial encounter (principal); A41.9 Sepsis, unspecified organism; Z68.43 Body mass index [BMI] 50.0-59.9, adult; Z88.8 Allergy status to other drugs, medicaments and biological substances; Z88.1 Allergy status to other antibiotic agents; Z88.6 Allergy status to analgesic agent; G47.30 Sleep apnea, unspecified; Z90.710 Acquired absence of both cervix and uterus; E11.9 Type 2 diabetes mellitus without complications; Z83.3 Family history of diabetes mellitus; Z82.49 Family history of ischemic heart disease and other diseases of the circulatory system; Z98.51 Tubal ligation status; E66.01 Morbid (severe) obesity due to excess calories; T50.905A Adverse effect of unspecified drugs, medicaments and biological substances, initial encounter; Y92.89 Other specified places as the place of occurrence of the external cause; Y83.8 Other surgical procedures as the cause of abnormal reaction of the patient, or of later complication, without mention of misadventure at the time of the procedure
CPT/HCPCS: 36415; 74177; 80053; 81001; 82140; 82962; 83036; 83690; 85025; 87040; 87086; 93005; 93010; 96374; 96375; C9113; J1170; J1200; J1650; J2270; J2405; J2543; J3370; J7040; J7042; Q9967

== ENCOUNTER 2016-11-01 11:15 | Emergency (ER) | payer SELFPAY ==
[2016-11-01 12:03] LABS: Eosinophils % (Auto) 2.3 % (0.0-4.3); Hematocrit 39.1 % (30.3-42.9); Hemoglobin 12.9 gm/dl (10.1-14.3); Mean Corpuscular HGB Conc 33 % (30-34); Mean Corpuscular Hemoglobin 30 pg (28-32); Mean Corpuscular Volume 92 fl (79-97); Platelet Count 262 K/mm3 (140-440); Red Blood Count 4.25 M/mm3 (3.65-5.03); Red Cell Distribution Width 13.6 % (13.2-15.2); White Blood Count 7.4 K/mm3 (4.5-11.0)
[2016-11-01 12:21] LABS: Alanine Aminotransferase 11 units/L (7-56); Albumin 3.7 g/dL (3.9-5); Albumin/Globulin Ratio 1.3 %; Alkaline Phosphatase 57 units/L (35-129); Anion Gap 14 mmol/L; Bilirubin,Total 0.2 mg/dL (0.1-1.2); Blood Urea Nitrogen 9 mg/dL (7-17); Calcium 8.9 mg/dL (8.4-10.2); Carbon Dioxide 24 mmol/L (22-30); Glucose 116 mg/dL (65-100); Lipase 35 units/L (13-60); Potassium 4.3 mmol/L (3.6-5.0); Sodium 141 mmol/L (137-145); Total Protein 6.5 g/dL (6.3-8.2)
[2016-11-01 13:28] LABS: Bilirubin,Urine NEG (Negative); Blood,Urine NEG (Negative); Ketones,Urine NEG (Negative); Leukocyte Esterase,Urine NEG (Negative); Mucus,Urine FEW /HPF; Nitrite,Urine NEG (Negative); Protein,Urine <15 mg/dL mg/dL (Negative); Urobilinogen,Urine < 2.0 mg/dL (<2.0); WBC,Urine < 1.0 /HPF (0.0-6.0)
[2016-11-01 13:29] LABS: RBC,Urine < 1.0 /HPF (0.0-6.0)
[2016-11-01] MEDS ORDERED: ZOFRAN IV ONE (17:04)
[2016-11-01] MEDS ORDERED: MORPHINE IV ONE (17:04)
--- NOTE | 2016-11-01 17:10 | Emergency Department Report ---
HPI - General Chief Complaint: Abdominal Pain Time Seen by Provider: 11/01/16 16:55 - HPI HPI: Room 8 The patient is a 46-year-old female presenting with a chief complaint of back pain. Patient was recently admitted to the hospital for abdominal pain and concern for postop hernia repair mesh infection. The patient's abdominal CT did not reveal any acute findings and her white count normalize and eventually the patient was discharged home yesterday with antibiotics and pain medication. The patient states yesterday she began to develop low back pain all across her back that began radiating to both lower extremities. Patient admits to mild numbness in bilateral lower extremities. Patient denies bowel or bladder incontinence. Patient denies any history of preceding trauma. Patient admits to nausea but denies vomiting Location: [see above] Duration: Constant since yesterday Quality:, Pain, Numbness Severity: 8-04/15 Modifying factors: [see above] Context: [see above] Mode of transportation: [not driving] ED Past Medical Hx - Past Medical History Hx Diabetes: Yes Hx Psychiatric Treatment: Yes (BIPOLAR) Additional medical history: Sleep apnea - Surgical History Hx Breast Surgery: Yes (BREAST REDUCTION) Additional Surgical History: HYSTERECTOMY / HERNIA REPAIRS. . TUBAL LIGATION. ECTOPIC. LEFT CARPAL TUNNEL RELEASE - Family History Family history: no significant - Social History Smoking Status: Never Smoker Substance Use Type: Prescribed - Medications Home Medications: Home Medications Medication Instructions Recorded Confirmed Last Taken Type Amoxicillin/K Clav Tab [Augmentin 1 tab PO Q12HR #14 tab 10/31/16 Unknown Rx 875 mg] oxyCODONE /ACETAMINOPHEN [Percocet 1 tab PO Q6H PRN #30 tablet 10/31/16 Unknown Rx 5/325 mg] ED Review of Systems ROS: Stated complaint: POSS INFECTION/BACK/LEG PAIN Other details as noted in HPI Comment: All other systems reviewed and negative Constitutional: denies: chills, fever Eyes: denies: eye pain, eye discharge, vision change ENT: denies: ear pain, throat pain Respiratory: denies: cough, shortness of breath, wheezing Cardiovascular: denies: chest pain, palpitations Endocrine: no symptoms reported Gastrointestinal: denies: abdominal pain, nausea, diarrhea Genitourinary: denies: urgency, dysuria, discharge Musculoskeletal: back pain Skin: denies: rash, lesions Neurological: paresthesias Psychiatric: denies: anxiety, depression Hematological/Lymphatic: denies: easy bleeding, easy bruising Physical Exam - Physical Exam Vital Signs: Vital Signs 11/01/16 11/01/16 11/01/16 11:36 15:41 15:42 Temperature 97.9 F 97.8 F Pulse Rate 70 72 Respiratory 18 18 18 Rate Blood Pressure 149/82 Blood Pressure 148/90 [Left] O2 Sat by Pulse 100 98 98 Oximetry Physical Exam: GENERAL: The patient is well-developed well-nourished []. [] HEENT: Normocephalic. Atraumatic. Extraocular motions are intact. Patient has moist mucous membranes. NECK: Supple. Trachea Midline CHEST/LUNGS: Clear to auscultation. There is no respiratory distress noted. HEART/CARDIOVASCULAR: Regular. There is no tachycardia. There is no gallop rub or murmur. ABDOMEN: Abdomen is soft. Patient has normal bowel sounds. There is no abdominal distention. SKIN: There is no rash. There is no edema. There is no diaphoresis. NEURO: The patient is awake, alert, and oriented. The patient is cooperative. The patient has normal speech MUSCULOSKELETAL: There is no axial tenderness or deformity. There is no limitation range of motion. There is no evidence of acute injury. ED Course Vital Signs 11/01/16 11/01/16 11/01/16 11:36 15:41 15:42 Temperature 97.9 F 97.8 F Pulse Rate 70 72 Respiratory 18 18 18 Rate Blood Pressure 149/82 Blood Pressure 148/90 [Left] O2 Sat by Pulse 100 98 98 Oximetry - Consultations Consultation #1: 11/01/16 17:44 Informed by nursing that the patient did not fit into the MRI machine. Will admit the patient to the hospital and consider CT myelogram ED Medical Decision Making - Lab Data Result diagrams: 11/01/16 11:47 11/01/16 11:47 Laboratory Tests 11/01/16 11/01/16 11/01/16 11:47 11:47 Unknown WBC 7.4 RBC 4.25 Hgb 12.9 Hct 39.1 MCV 92 MCH 30 MCHC 33 RDW 13.6 Plt Count 262 Lymph % (Auto) 29.2 [place] % (Auto) 4.2 Eos % (Auto) 2.3 Baso % (Auto) 1.0 Lymph # 2.2 [place] # 0.3 Eos # 0.2 Baso # 0.1 Seg Neutrophils % 63.3 Seg Neutrophils # 4.7 Sodium 141 Potassium 4.3 Chloride 107.0 Carbon Dioxide 24 Anion Gap 14 BUN 9 Creatinine 0.6 L Estimated GFR > 60 BUN/Creatinine Ratio 15.00 Glucose 116 H Calcium 8.9 Total Bilirubin 0.2 AST 11 ALT 11 Alkaline Phosphatase 57 Total Protein 6.5 Albumin 3.7 L Albumin/Globulin Ratio 1.3 Lipase 35 Urine Color Straw Urine Turbidity Clear Urine pH 7.0 Ur Specific [place] 1.008 Urine Protein <15 mg/dl Urine Glucose (UA) Neg Urine Ketones Neg Urine Blood Neg Urine Nitrite Neg Urine Bilirubin Neg Urine Urobilinogen < 2.0 Ur Leukocyte Esterase Neg Urine WBC (Auto) < 1.0 Urine RBC (Auto) < 1.0 U Epithel Cells (Auto) 2.0 Urine Mucus Few - Differential Diagnosis Lumbar radiculopathy, spinal abscess Critical care attestation.: If time is entered above; I have spent that time in minutes in the direct care of this critically ill patient, excluding procedure time. ED Disposition Clinical Impression: Lumbar pain, Lumbar radiculopathy, acute Disposition: OP ADMITTED IP TO THIS HOSP Is pt being admited?: Yes Does the pt Need Aspirin: Yes Condition: Fair Instructions: Abdominal Pain (ED) Referrals: PRIMARY CARE, [Primary Care Provider] - 3-5 Days Time of Disposition: 17:45 (hospitalist notified)
--- NOTE | 2016-11-01 17:53 | Admit Criteria Form ---
Admission Criteria Documentation: BACK PAIN Clinical Indications for Admission to Inpatient Care (Place 'X' for any and all applicable criteria): Admission is indicated for ANY ONE of the following (1)(2)(3)(4)(5)(6): [X ]I. Inpatient admission required rather than observation care (Also use Back Pain: Observation Care as appropriate) because of ANY ONE of the following [ ]a) Severe pain requiring acute inpatient management [ ]b) Immediate inpatient surgery [ X]c) Other condition, treatment or monitoring requiring inpatient admission [ ]II. Spine fracture with significant damage or threat of damage to vertebral column or spinal cord [ ]III. Progressive or severe neurologic deficit [ ]IV. Suspected spinal infection (e.g., epidural abscess, vertebral osteomyelitis)(10) [ ]V. Suspected cause requires inpatient treatment (eg, aortic dissection) [ ]. Cauda equina syndrome as indicated by ANY ONE of the following (9): [ ]a) Bowel dysfunction [ ]b) Bladder dysfunction [ ]c) Saddle anesthesia [ ]d) Neurologic abnormality suggesting cauda equina impingement Extended stay beyond goal length of stay may be needed for (3)(25): [ ]a) Spinal cord compression from stenosis, disk, or tumor (8)(9) [ ]b) Traumatic or pathologic vertebral fracture (33) [ ]c) Vertebral infection(10) [ ]d) Severe pain that is difficult to control [ ]e) Older patients(65 years or older) The original [facility] content created by [employer] has been revised. The portions of the content which have been revised are identified through the use of italic text or in bold, and [facility] has neither reviewed nor approved the modified material. All other unmodified content is copyright [facility]. Please see references footnoted in the original [facility] edition 2016
--- NOTE | 2016-11-01 19:54 | History and Physical Report ---
Medications and Allergies Allergies Allergy/AdvReac Type Severity Reaction Status Date / Time Barbiturates Allergy Hives Verified 11/01/16 11:34 ciprofloxacin [From Cipro] Allergy Hives Verified 11/01/16 11:34 ciprofloxacin HCl Allergy Hives Verified 11/01/16 11:34 [From Cipro] ketorolac tromethamine Allergy Rash Verified 11/01/16 11:34 [From Toradol] Quinolones Allergy Hives Verified 11/01/16 11:34 Home Medications Medication Instructions Recorded Confirmed Last Taken Type Amoxicillin/K Clav Tab [Augmentin 1 tab PO Q12HR #14 tab 10/31/16 Unknown Rx 875 mg] oxyCODONE /ACETAMINOPHEN [Percocet 1 tab PO Q6H PRN #30 tablet 10/31/16 Unknown Rx 5/325 mg] Exam - Constitutional Vitals: Temp Pulse Resp BP Pulse Ox 97.8 F 64 18 137/80 98 11/01/16 15:41 11/01/16 17:35 11/01/16 17:35 11/01/16 17:35 11/01/16 17:35 Results - Labs CBC & Chem 7: 11/01/16 11:47 11/01/16 11:47 Labs: Abnormal lab results 11/01/16 Range/Units 11:47 Creatinine 0.6 L (0.7-1.2) mg/dL Glucose 116 H (65-100) mg/dL Albumin 3.7 L (3.9-5) g/dL
[2016-11-01 20:44] VITALS: BP 132/87
--- NOTE | 2016-11-01 20:54 | Consultation ---
Medications and Allergies Allergies Allergy/AdvReac Type Severity Reaction Status Date / Time Barbiturates Allergy Hives Verified 11/01/16 11:34 ciprofloxacin [From Cipro] Allergy Hives Verified 11/01/16 11:34 ciprofloxacin HCl Allergy Hives Verified 11/01/16 11:34 [From Cipro] ketorolac tromethamine Allergy Rash Verified 11/01/16 11:34 [From Toradol] Quinolones Allergy Hives Verified 11/01/16 11:34 Home Medications Medication Instructions Recorded Confirmed Last Taken Type Ibuprofen [Motrin] 800 mg PO Q8HR PRN #18 tablet 11/01/16 Unknown Rx Prednisone [predniSONE 10 mg 10 mg PO .TAPER #1 tab.ds.pk 11/01/16 Unknown Rx (6-Day Pack, 21 Tabs)] Quetiapine Fumarate [Seroquel] 100 mg PO BID 11/01/16 11/01/16 10/28/16 History carBAMazepine [TEGretol] 25 mg PO BID 11/01/16 11/01/16 10/28/16 History hydrOXYzine PAMOATE [Vistaril] 50 mg PO BID 11/01/16 11/01/16 10/28/16 History Exam - Constitutional Vitals: Temp Pulse Resp BP Pulse Ox 97.8 F 67 18 132/87 100 11/01/16 15:41 11/01/16 20:43 11/01/16 20:43 11/01/16 20:43 11/01/16 20:43 Results - Labs CBC & Chem 7: 11/01/16 11:47 11/01/16 11:47 Labs: Abnormal lab results 11/01/16 Range/Units 11:47 Creatinine 0.6 L (0.7-1.2) mg/dL Glucose 116 H (65-100) mg/dL Albumin 3.7 L (3.9-5) g/dL
--- NOTE | 2016-11-02 09:35 | XRay Report ---
THORACIC SPINE RADIOGRAPHS INDICATION: Abdominal pain, radiating to back. COMPARISON: None similar. FINDINGS: AP and lateral thoracic spine radiographs demonstrate normal vertebral body stature. Mild dextroscoliosis apex about T7 with some possible disc narrowing as well. Mild degenerative spurring at few levels. No abnormal paraspinal density. Grossly symmetric pedicles and clear imaged lungs. CONCLUSION: Few thoracic spine degenerative changes without acute radiographic abnormality, as described. Thank you for the opportunity to participate in this patient's care.
--- NOTE | 2016-11-02 09:42 | XRay Report ---
LUMBAR SPINE RADIOGRAPHS: INDICATION: Abdominal pain radiating to back. COMPARISON: None similar. FINDINGS: AP and lateral lumbar spine radiographs demonstrate normal vertebral body stature and alignment. S1 may be lumbarized. Mid to lower lumbar degenerative spurring. Mild lumbar superior endplate possible Schmorl's node as well. Grossly preserved lumbar disc heights. Nonobstructive bowel gas pattern. Approximately 5 mm density projecting just below the right 12th rib may represent known right renal calculus. Intact SI joints. Small pelvic phleboliths. CONCLUSION: No acute radiographic abnormality with few findings, as above. Please correlate. Thank you for the opportunity to participate in this patient's care.
== END 2016-11-01 21:13 | disposition admitted as inpatient to this hospital (09) ==
LOC: ED 11:15
DX: M54.16 Radiculopathy, lumbar region (principal); E11.9 Type 2 diabetes mellitus without complications; F31.9 Bipolar disorder, unspecified
CPT/HCPCS: 36415; 72070; 72100; 80053; 81001; 83690; 85025; 96374; 96375; 99284; J2270; J2405

== ENCOUNTER 2017-05-20 07:48 | Emergency (ER) | payer OTHER ==
[2017-05-20 08:08] VITALS: BP 134/86
[2017-05-20 08:54] LABS: Basophils % (Auto) 0.8 % (0.0-1.8); Eosinophils % (Auto) 0.9 % (0.0-4.3); Hematocrit 41.5 % (30.3-42.9); Hemoglobin 14.2 gm/dl (10.1-14.3); Mean Corpuscular HGB Conc 34 % (30-34); Mean Corpuscular Hemoglobin 31 pg (28-32); Mean Corpuscular Volume 90 fl (79-97); Platelet Count 270 K/mm3 (140-440); Red Blood Count 4.63 M/mm3 (3.65-5.03); Red Cell Distribution Width 13.2 % (13.2-15.2); White Blood Count 8.2 K/mm3 (4.5-11.0)
[2017-05-20 09:18] LABS: Alanine Aminotransferase 14 units/L (7-56); Albumin 3.8 g/dL (3.9-5); Albumin/Globulin Ratio 1.1 %; Alkaline Phosphatase 48 units/L (35-129); Anion Gap 15 mmol/L; BUN/Creatinine Ratio 11; Blood Urea Nitrogen 8 mg/dL (7-17); Calcium 9.9 mg/dL (8.4-10.2); Carbon Dioxide 28 mmol/L (22-30); Glucose 119 mg/dL (65-100); Lipase 63 units/L (13-60); Potassium 3.8 mmol/L (3.6-5.0); Sodium 144 mmol/L (137-145); Total Protein 7.3 g/dL (6.3-8.2)
--- NOTE | 2017-05-20 10:51 | XRay Report ---
FINAL REPORT EXAM: XR CHEST ROUTINE 2V HISTORY: Shortness of breath TECHNIQUE: Frontal and lateral views of the chest. PRIORS: None currently available. FINDINGS: Cardiac silhouette is within normal limits. There is no effusion. There is no pneumothorax. There is no consolidation. There are no suspicious osseous lesions. IMPRESSION: No acute cardiopulmonary findings.
[2017-05-20] MEDS ORDERED: NACL 0.9% 1000 ML 1,000 ML IV ONE (12:21)
[2017-05-20] MEDS ORDERED: MORPHINE IV ONE (12:21)
[2017-05-20] MEDS ORDERED: ZOFRAN IV ONE (12:21)
[2017-05-20] MEDS ORDERED: NACL ONE (12:35)
[2017-05-20 12:50] LABS: Bacteria,Urine 1+ /HPF (Negative); Bilirubin,Urine NEG (Negative); Blood,Urine NEG (Negative); Ketones,Urine NEG (Negative); Leukocyte Esterase,Urine TR (Negative); Mucus,Urine 1+ /HPF; Nitrite,Urine NEG (Negative); Protein,Urine <15 mg/dL mg/dL (Negative); Urobilinogen,Urine < 2.0 mg/dL (<2.0)
--- NOTE | 2017-05-20 13:47 | Cat Scan Report ---
CT ABDOMEN AND PELVIS WITH CONTRAST: 05/20/17 07:48:00 CLINICAL: Abdominal pain. COMPARISON: None. TECHNIQUE: Volumetric acquisition and 1.25 millimeter scan reconstructions after the uneventful intravenous injection of 100 cc Omnipaque 300. Consent was obtained prior to the administration of contrast. Oral contrast was also given. FINDINGS: Abdomen: Normal liver, bile ducts and gallbladder. Normal stomach, duodenum, pancreas and spleen. Normal adrenal glands. A 7 mm nonobstructive right lower pole renal calculus and no other calculi identified. The renal collecting systems and ureters are nondilated. The kidneys are normal size with normal contours. Normal small bowel.Normal ascending, transverse and descending colon. The appendix is normal. No mass, lymphadenopathy or ascites.No pneumoperitoneum. Normal aorta and inferior vena cava. Healed midline abdominal incision. Pelvis: Absence of the uterus and a normal vaginal cuff.A normal left ovary with a 2.7 cm follicle. No right ovary identified. Normal rectum and sigmoid colon.No adnexal mass or free fluid.. Bone windows demonstrate no bone lesion. IMPRESSION:1. A 7 mm nonobstructive right lower pole renal calculus. The abdomen is otherwise normal. 2. Normal pelvis status post hysterectomy and right salpingo-oophorectomy.
--- NOTE | 2017-05-20 14:01 | Emergency Department Report ---
HPI - General Chief Complaint: Abdominal Pain Time Seen by Provider: 05/20/17 12:20 - HPI HPI: 46-year-old female coming in is left flank and right lower quadrant pain starting on this morning patient had a history of multiple intestinal issues. She states that her pain is accompanied by nausea, vomiting and urinary symptoms but no diarrhea. Patient has not taking any medication at home for his symptoms. She denies any exacerbating factors. She denies any alleviating factors. She denies any recent travel, or unusual foods. She denies any sick contacts. MD Complaint: abdominal pain -: Gradual Location: Right flank Radiation: none Migration to: no migration Severity scale (0 -10): 10 Quality: sharp Improves With: nothing Associated Symptoms: nausea, vomiting, chills ED Past Medical Hx - Past Medical History Previous Medical History?: Yes Hx Diabetes: Yes (pre diabetes) Hx Psychiatric Treatment: Yes (BIPOLAR) Additional medical history: Sleep apnea, Umbilical hernia - Surgical History Past Surgical History?: Yes Hx Breast Surgery: Yes (BREAST REDUCTION) Additional Surgical History: HYSTERECTOMY / HERNIA REPAIRS. . TUBAL LIGATION. ECTOPIC. LEFT CARPAL TUNNEL RELEASE - Social History Smoking Status: Never Smoker Substance Use Type: Prescribed - Medications Home Medications: Home Medications Medication Instructions Recorded Confirmed Last Taken Type Ibuprofen [Motrin] 800 mg PO Q8HR PRN #18 tablet 11/01/16 Unknown Rx Prednisone [predniSONE 10 mg 10 mg PO .TAPER #1 tab.ds.pk 11/01/16 Unknown Rx (6-Day Pack, 21 Tabs)] Quetiapine Fumarate [Seroquel] 100 mg PO BID 11/01/16 11/01/16 10/28/16 History carBAMazepine [TEGretol] 25 mg PO BID 11/01/16 11/01/16 10/28/16 History hydrOXYzine PAMOATE [Vistaril] 50 mg PO BID 11/01/16 11/01/16 10/28/16 History methOCARBAMOL [Robaxin TAB] 500 mg PO Q6H PRN #15 tablet 05/20/17 Unknown Rx ED Review of Systems ROS: Stated complaint: CHEST/ ABDOMINAL PAIN Other details as noted in HPI Physical Exam - Physical Exam Vital Signs: Vital Signs 05/20/17 08:03 Temperature 98 F Pulse Rate 70 Respiratory 18 Rate Blood Pressure 134/86 O2 Sat by Pulse 98 Oximetry Physical Exam: Physical Exam: Physical Exam: - General Limitations: No Limitations General appearance: alert, in no apparent distress. - Head Head exam: Present: atraumatic, normocephalic - Eye Eye exam: Present: normal appearance - ENT ENT exam: Present: mucous membranes moist - Neck Neck exam: Present: normal inspection - Respiratory Respiratory exam: Present: normal lung sounds bilaterally. Absent: respiratory distress - Cardiovascular Cardiovascular Exam: Present: normal rhythm, normal rate. Absent: systolic murmur, diastolic murmur, rubs, gallop - GI/Abdominal GI/Abdominal exam: Present: soft, normal bowel sounds - Extremities Exam Extremities exam: Present: normal inspection - Back Exam Back exam: Present: normal inspection - Neurological Exam Neurological exam: Present: alert, oriented X3 - Psychiatric Psychiatric exam: normal affect and mood - Skin Skin exam: Present: warm, dry, intact, normal color. Absent: rash ED Course Vital Signs 05/20/17 08:03 Temperature 98 F Pulse Rate 70 Respiratory 18 Rate Blood Pressure 134/86 O2 Sat by Pulse 98 Oximetry ED Medical Decision Making - Lab Data Result diagrams: 05/20/17 08:22 05/20/17 08:22 Critical care attestation.: If time is entered above; I have spent that time in minutes in the direct care of this critically ill patient, excluding procedure time. ED Disposition Clinical Impression: Kidney stone on right side Disposition: DC-01 TO HOME OR SELFCARE Is pt being admited?: No Does the pt Need Aspirin: No Condition: Stable Instructions: Kidney Stones (ED), Abdominal Pain (ED) Prescriptions: methOCARBAMOL [Robaxin TAB] 500 mg PO Q6H PRN #15 tablet PRN Reason: Pain Referrals: PRIMARY CARE,MD [Primary Care Provider] - 3-5 Days
== END 2017-05-20 14:22 | disposition home or self-care (01) ==
LOC: ED 07:48
DX: F31.9 Bipolar disorder, unspecified (principal); Z79.899 Other long term (current) drug therapy; Z88.1 Allergy status to other antibiotic agents
CPT/HCPCS: 36415; 71020; 74177; 80053; 81001; 82962; 83690; 84484; 85025; 93005; 93010; 96361; 96374; 96375; 99283; J2270; J2405; J7030; Q9967

== ENCOUNTER 2017-05-20 22:43 | Emergency (ER) | payer SELFPAY ==
[2017-05-20 22:58] VITALS: BP 126/84
[2017-05-20 23:51] LABS: Basophils % (Auto) 0.7 % (0.0-1.8); Eosinophils % (Auto) 0.1 % (0.0-4.3); Hematocrit 44.6 % (30.3-42.9); Hemoglobin 14.8 gm/dl (10.1-14.3); Mean Corpuscular HGB Conc 33 % (30-34); Mean Corpuscular Hemoglobin 30 pg (28-32); Mean Corpuscular Volume 91 fl (79-97); Platelet Count 288 K/mm3 (140-440); Red Cell Distribution Width 13.2 % (13.2-15.2); White Blood Count 13.7 K/mm3 (4.5-11.0)
== END 2017-05-20 23:30 | disposition left against medical advice (07) ==
LOC: ED 22:43
DX: R06.02 Shortness of breath (principal); Z53.21 Procedure and treatment not carried out due to patient leaving prior to being seen by health care provider
CPT/HCPCS: 36415; 82962; 85025; 93005; 93010

== ENCOUNTER 2019-09-01 17:38 | Emergency (ER) | payer SELFPAY ==
[2019-09-01 18:13] VITALS: BP 131/64
--- NOTE | 2019-09-01 19:33 | Emergency Department Report ---
Chief Complaint: Anxiety Stated Complaint: ANXIETY Time Seen by Provider: 09/01/19 19:24 - HPI History of Present Illness: This is a 49-year-old female nontoxic, well in appearance with no signs of distress presents to the ED for vistaril medicaiton refill. Stated has not been taking it for a 1 week and started to have trouble sleeping yesteryda. Stated has some anxiety. Dneies any SI/HI. Denies any other complaints. Patient stated she is asymptotic right now. Patient denies any urinary symptoms. Patient denies any fever, chills, headache, nausea, vomiting, chest pain or shortness of breathe. denies any other symptoms or complaints. - Exam Vital Signs: Vital Signs 09/01/19 18:00 Temperature 98.6 F Pulse Rate 75 Respiratory 16 Rate Blood Pressure 131/64 O2 Sat by Pulse 95 Oximetry Physical Exam: No SI/HI. normal affect. No anxiety. normal neuro exam. MSE screening note: Focused history and physical exam performed. Due to findings the following was ordered: ED Medical Decision Making - Medical Decision Making This is a 49-year-old female that presents with medicaiton refill. Patient denies any symptoms. I gave patient many different referrals to follow-up with medication refill. Patient was instructed to Follow-up with a primary care doctor in 3-5 days or if symptoms worsen and continue return to emergency room as soon as possible. At time of discharge, the patient does not seem toxic or ill in appearance. No acute signs of distress noted. Patient agrees to discharge treatment plan of care. No further questions noted by the patient. ED Disposition for MSE Clinical Impression: Medication refill Disposition: MED SCREENING EXAM-LEFT Is pt being admited?: No Does the pt Need Aspirin: No Condition: Stable Additional Instructions: Follow-up with the referrals that has been provided to you during your ED visit today or if symptoms worsen and continue return to emergency room as soon as possible. Referrals: PRIMARY MD GENARO [Referring] - 3-5 Days GONSALO WILKES MD [Staff Physician] - 3-5 Days [facility] [Outside] - 3-5 Days
== END 2019-09-01 21:19 | disposition left against medical advice (07) ==
LOC: ED 17:38
DX: F41.9 Anxiety disorder, unspecified (principal); Z76.0 Encounter for issue of repeat prescription; Z88.8 Allergy status to other drugs, medicaments and biological substances; Z88.1 Allergy status to other antibiotic agents
CPT/HCPCS: 99281